=== PATIENT | female | born 1970 | race Caucasian/White ===

== ENCOUNTER 2017-09-02 08:37 | Emergency (ER) | payer BC ==
[2017-09-02 08:51] VITALS: BP 108/70
[2017-09-02] MEDS ORDERED: Albuterol/Ipratropium NEB.SOL* Albuterol 2.5 MG/Ipratropium 0.5 MG 3 ML INH ONE (09:03)
[2017-09-02] MEDS ORDERED: Ibuprofen TAB* 600 MG PO ONE (09:03)
--- NOTE | 2017-09-02 09:11 | UC ---
Respiratory Complaint HPI - HPI Summary HPI Summary: Patient is a pack a day smoker, has had difficulty breathing for the past week, has been using mucinex. increased cough, SOB and back pain - History of Current Complaint Chief Complaint: UCRespiratory Stated Complaint: COUGH BILATERAL EAR BACK PAIN Hx Obtained From: Patient Hx Last Menstrual Period: pt had an ablasion and does not get a menses ?: No Onset/Duration: Gradual Onset, Lasting Weeks Timing: Constant Severity Initially: Moderate Pain Intensity: 6 Character: Cough: Productive Aggravating Factors: Exertion, Deep Breaths Associated Signs And Symptoms: Positive: Dyspnea, Wheezing, Dizziness, URI - Allergies/Home Medications Allergies/Adverse Reactions: Allergies Allergy/AdvReac Type Severity Reaction Status Date / Time latex Allergy Intermediate Rash Verified 09/02/17 08:51 PMH/Surg Hx/FS Hx/Imm Hx Previously Healthy: Yes - Surgical History Surgical History: Yes Surgery Procedure, Year, and Place: uterine albation, sinus and tear duct, tubal ligation, hysterectomy - Family History Known Family History: Positive: None Negative: Cardiac Disease, Hypertension, Diabetes - Social History Alcohol Use: Weekly Alcohol Amount: weekend Substance Use Type: None Smoking Status (MU): Heavy Every Day Tobacco Smoker Type: Cigarettes Amount Used/How Often: 1 ppd Length of Time of Smoking/Using Tobacco: 29 Years Have You Smoked in the Last Year: Yes When Did the Patient Quit Smoking/Using Tobacco: 27 yrs Household Exposure Type: Cigarettes - Immunization History Most Recent Influenza Vaccination: none Review of Systems Constitutional: Negative Skin: Negative Eyes: Negative ENT: Negative Respiratory: Negative, Shortness Of Breath, Cough Gastrointestinal: Negative Genitourinary: Negative Motor: Negative Neurovascular: Negative Musculoskeletal: Myalgia Neurological: Headache Psychological: Negative Is Patient Immunocompromised?: No All Other Systems Reviewed And Are Negative: Yes Physical Exam Triage Information Reviewed: Yes Appearance: Well-Nourished, Ill-Appearing, Pain Distress Vital Signs: Initial Vital Signs Temp 98.3 F 09/02/17 08:46 Pulse 87 09/02/17 08:46 Resp 18 09/02/17 08:46 BP 108/70 09/02/17 08:46 Pulse Ox 100 09/02/17 08:46 Vital Signs Reviewed: Yes Eye Exam: Normal ENT: Positive: Pharynx normal, TMs normal Dental Exam: Normal Neck exam: Normal Neck: Positive: Supple, Nontender, No Lymphadenopathy Respiratory: Positive: No accessory muscle use, Respiratory distress - mild, Decreased breath sounds, Crackles, Rhonchi, Wheezing Cardiovascular Exam: Normal Cardiovascular: Positive: RRR, No Murmur, Pulses Normal Abdominal Exam: Normal Abdomen Description: Positive: Nontender, No Organomegaly, Soft Bowel Sounds: Positive: Present Musculoskeletal Exam: Normal Neurological Exam: Normal Psychological Exam: Normal Skin Exam: Normal UC Diagnostic Evaluation - Laboratory O2 Sat by Pulse Oximetry: 100 - Radiology Xray Interpretation: Positive (See Comments) - fibrosis and COPD Radiology Interpretation Completed By: Radiologist Respiratory Course/Dx - Course Course Of Treatment: hx obtained, exam performed ,meds reviewed, chest xray, neb treatment and pain meds administered. treated for COPD and pulmonary Fibrosis, recommend follow up with PCP and pulmonary appointment - Differential Dx/Diagnosis Differential Diagnosis/HQI/PQRI: Asthma, Bronchitis, Exacerbation Of COPD, Lower Resp Infection Provider Diagnoses: institial fibrosis of lungs. COPD. Bronchitis. myalgia Discharge - Sign-Out/Discharge Documenting (check all that apply): Discharge/Admit/Transfer - Discharge Plan Condition: Stable Disposition: HOME Prescriptions: Amoxicillin PO (*) [Amoxicillin 875 MG (*)] 875 mg PO BID #14 tab Budesonide/Formote 80/4.5(NF) [Symbicort 80/4.5 (NF)] 1 puff INH BID #1 mdi Codeine Phosphate/Guaifenesin [Guaifenesin-Codeine Syrup] 10 ml PO BID #100 ml MDD 20 ml Patient Education Materials: Pulmonary Fibrosis (ED), COPD (Chronic Obstructive Pulmonary Disease) (DC) Referrals: RAPHAEL Armstrong [Primary Care Provider] - Additional Instructions: 1. Take the medication as prescribed. 2. Follow up with Deja and I recommend a pulmonary consult at this time 3. Get plenty of rest. - Billing Disposition and Condition Condition: STABLE Disposition: HOME
--- NOTE | 2017-09-02 09:25 | RAD ---
INDICATION: 2 weeks productive cough. Fever. Now back pain. Shortness of breath. History of tobacco use. COMPARISON: May 27, [address] TECHNIQUE: Dual energy PA and routine lateral views of the chest were obtained. REPORT: Elevated lung volumes and both diffuse mild prominence of the interstitial markings and rarefaction of the mid to upper lung zone interstitial markings. Mild basilar interstitial fibrosis/honeycombing based on correlation with prior CT. No focal pulmonary lesion, compelling alveolar consolidation, pleural effusion, pneumothorax. The heart, pulmonary vasculature, and mediastinal contours are unremarkable. No evidence for thoracic vertebral body fracture. Normal thoracic spine alignment. Only minimal multilevel degenerative spondylosis. No rib fracture evident. IMPRESSION: Stigmata of obstructive lung disease and mild interstitial fibrosis. No acute pulmonary or cardiac process evident.
== END 2017-09-02 09:48 | disposition home or self-care (01) ==
LOC: UCCORT 08:37
DX: J84.10 Pulmonary fibrosis, unspecified (principal); J44.9 Chronic obstructive pulmonary disease, unspecified; M79.1 Myalgia; Z91.040 Latex allergy status; F17.210 Nicotine dependence, cigarettes, uncomplicated
CPT/HCPCS: 71046; 87502; 99212; A9270-GY; G0463